=== PATIENT | male | born 1995 | race Caucasian/White ===

== ENCOUNTER 2021-03-28 11:50 | Emergency (ER) | payer OTHER ==
[2021-03-28 12:45] LABS: HEMOGLOBIN 16.6 gm/dl (14.0-17.5); RED BLOOD COUNT 5.3 M/UL (4.20-5.50); WHITE BLOOD COUNT 14.5 K/UL (4.5-11.0)
[2021-03-28 13:19] LABS: BUN/CREATININE RATIO 16 (0-10)
[2021-03-28] MEDS ORDERED: IBUPROFEN600 MG PO (14:14)
[2021-03-28] MEDS ORDERED: PREDNISONE 20 M20 MG GT (14:14)
== END 2021-03-28 14:30 | disposition home or self-care (01) ==
LOC: ER1 11:50
PROVIDERS: Nurse Practitioner
DX: R09.1 Pleurisy (principal); J45.909 Unspecified asthma, uncomplicated; F17.290 Nicotine dependence, other tobacco product, uncomplicated; Z20.822 Contact with and (suspected) exposure to COVID-19
CPT/HCPCS: 71045; 80053; 81001; 82550; 82553; 83874; 84484; 85025; 93005; 99285; U0002